=== PATIENT | male | born 1970 | race Native Hawaiian/Other Pacific Islander ===

== ENCOUNTER 2021-04-16 09:18 | Outpatient (CLI) | payer BC, OTHER | END 2021-04-16 19:27 | disposition home or self-care (01) | LOC: RAD 09:18 | PROVIDERS: ATTEND Nurse Practitioner Family | DX: R05.3 Chronic cough (principal); R06.02 Shortness of breath; U09.9 Post COVID-19 condition, unspecified ==

== ENCOUNTER 2022-07-04 13:58 | Outpatient (CLI) | payer BC | END 2022-07-04 19:18 | disposition home or self-care (01) | LOC: RAD 13:58 | PROVIDERS: ATTEND Nurse Practitioner Family | DX: M54.6 Pain in thoracic spine (principal); M54.59 Other low back pain ==

== ENCOUNTER 2022-11-18 16:42 | Emergency (ER) | payer OTHER ==
[~2022-11-18] VITALS: Ht 182.9 cm; Wt 108.9 kg
[2022-11-18 16:46] VITALS: BP 147/103; TEMP 97.7
== END 2022-11-18 18:22 | disposition home or self-care (01) ==
LOC: ED 16:42
PROC: 2W3MX1Z Immobilization of Left Lower Extremity using Splint (ICD-10-PCS; principal; 2022-11-18)
DX: S82.202A Unspecified fracture of shaft of left tibia, initial encounter for closed fracture (principal); I10 Essential (primary) hypertension; T14.90XA Injury, unspecified, initial encounter
CPT/HCPCS: 99283